=== PATIENT | female | born 1940 | race Caucasian/White ===

== ENCOUNTER 2020-08-14 12:05 | Emergency (ER) | payer BC | END 2020-08-14 12:35 | disposition home or self-care (01) | LOC: JVIRT 12:05 | DX: U07.1 COVID-19 (principal) | CPT/HCPCS: C9803; Q3014-GT; U0003 ==

== ENCOUNTER 2020-08-16 15:02 | Inpatient (IN) | payer BC, OTHER ==
[2020-08-16] MEDS ORDERED: DEXAMETHASONE SOD PHOSPHATE 10 MG/1 ML VIAL IVPUSH ONE (15:30)
[2020-08-16] MEDS ORDERED: DEXAMETHASONE SOD PHOSPHATE 4 MG/1 ML VIAL ONE (16:51)
[2020-08-16 17:28] LABS: BASO % 0.1 % (0-2.0); HEMATOCRIT 41.8 % (32.4-45.2); HEMOGLOBIN 13.8 GM/dL (10.7-15.3); LYMPH % 7.5 % (8-40); MCH 27.9 pg (25.7-33.7); MEAN CELL VOLUME 84.4 fl (80-96); MONO % 8.3 % (3.8-10.2); NEUT % 84.1 % (42.8-82.8); PLATELET COUNT 174 K/MM3 (134-434); RBC 4.95 M/mm3 (3.60-5.2); RDW 15.3 % (11.6-15.6); WHITE BLOOD COUNT 6.1 K/mm3 (4.0-10.0)
[2020-08-16 17:35] LABS: INR 1.07 (0.83-1.09); PROTHROMBIN TIME (PATIENT) 13.1 SEC (9.7-13.0)
[2020-08-16 17:40] LABS: VENOUS O2 SATURATION 78.6 % (70-80); VENOUS PCO2 38.6 mmHg (38-52); VENOUS PH 7.418 (7.310-7.410)
[2020-08-16 17:47] LABS: CHLORIDE 100 mmol/L (98-107); SODIUM 133 mmol/L (136-145)
[2020-08-16 17:49] LABS: ALBUMIN 3.5 g/dl (3.4-5.0); ANION GAP 8 MMOL/L (8-16); CALCIUM 8.5 mg/dL (8.5-10.1); CO2 26 mmol/L (21-32); GLUCOSE,RANDOM 100 mg/dL (74-106)
[2020-08-16 17:52] LABS: BILIRUBIN,DIRECT 0.3 mg/dL (0.0-0.2); CREATININE 1.1 mg/dL (0.55-1.3); SGOT/AST 80 U/L (15-37); SGPT/ALT 81 U/L (13-61)
[2020-08-16 17:54] LABS: BILIRUBIN,TOTAL 0.5 mg/dL (0.2-1); TOT PROT 7.2 g/dl (6.4-8.2)
[2020-08-16 17:55] LABS: ALK PHOS 126 U/L (45-117)
[2020-08-16 17:56] LABS: LDH 306 U/L (84-246)
[2020-08-16] MEDS ORDERED: REMDESIVIR 200 MG in SODIUM CHLORIDE 210 ML IVPB ONE (18:00)
[2020-08-16] MEDS ORDERED: ENOXAPARIN NA (PORCINE) 40 MG/0.4 ML DISP.SYRIN SQ SCH (18:15)
[2020-08-16 18:28] VITALS: BMI 29.0
[2020-08-16] MEDS ORDERED: DEXTROSE 5%-1/3 NS - 500 ML IV SCH (18:30)
[2020-08-16] MEDS: AMOX TR/POT CLAV 875MG/125MG TABLETS (FP) PO SCH ×2 (18:31→18:41)
[2020-08-16] MEDS: LACTOBACILLUS ACIDOPHILUS 1 TABLET PO SCH (18:41)
[2020-08-16] MEDS: LORATADINE 10 MG TABLET PO SCH (18:41)
[2020-08-16] MEDS ORDERED: ALBUTEROL SO4 HFA INHALER IH PRN (19:40)
[2020-08-16 19:59] LABS: EPI CELLS 2 /uL (0-25.1); HYALINE CASTS 0 /uL (0-3.1); PH,URINE 6.5 (5.0-8.0); URINE APPEARANCE CLEAR; URINE BACTERIA 4885 /uL (0-1359); URINE BILIRUBIN NEGATIVE (NEGATIVE); URINE COLOR YELLOW; URINE GLUCOSE (UA) NEGATIVE (NEGATIVE); URINE KETONE NEGATIVE (NEGATIVE); URINE LEUK ESTERASE TRACE (NEGATIVE); URINE NITRITE NEGATIVE (NEGATIVE); URINE PROTEIN NEGATIVE (NEGATIVE); URINE RBC 7 /uL (0-23.9); URINE UROBILINOGEN 0.2 mg/dL (0.2-1.0); URINE WBC 126 /uL (0-25.8)
[2020-08-16] MEDS: guaiFENesin 200 MG/10 ML 10 ML UNIT-DOSE CUPS PO SCH (22:22)
[2020-08-16] MEDS: GABAPENTIN 100 MG CAPSULE PO SCH (22:22)
[2020-08-16] MEDS: DEXTROSE 5%-0.45% SALINE 1,000 ML IV SCH (22:30)
[2020-08-17] MEDS: GABAPENTIN 100 MG CAPSULE PO SCH ×3 (06:04→21:49)
[2020-08-17] MEDS: guaiFENesin 200 MG/10 ML 10 ML UNIT-DOSE CUPS PO SCH ×3 (06:04→21:49)
[2020-08-17 07:27] LABS: BASO % 0.2 % (0-2.0); HEMOGLOBIN 12.3 GM/dL (10.7-15.3); LYMPH % 12.9 % (8-40); MCH 27.5 pg (25.7-33.7); MCHC 32.5 g/dl (32.0-36.0); MEAN CELL VOLUME 84.5 fl (80-96); MEAN PLT VOLUME 9.4 fl (7.5-11.1); MONO % 11.4 % (3.8-10.2); NEUT % 75.5 % (42.8-82.8); PLATELET COUNT 177 K/MM3 (134-434); RBC 4.49 M/mm3 (3.60-5.2); RDW 15.2 % (11.6-15.6); WHITE BLOOD COUNT 3.3 K/mm3 (4.0-10.0)
[2020-08-17] MEDS: AMOX TR/POT CLAV 875MG/125MG TABLETS (FP) PO SCH ×2 (08:35→17:18)
[2020-08-17 09:02] LABS: ALBUMIN 3.2 g/dl (3.4-5.0); ALK PHOS 105 U/L (45-117); ANION GAP 11 MMOL/L (8-16); BILIRUBIN,TOTAL 0.5 mg/dL (0.2-1); BLOOD UREA NITROGEN 17.1 mg/dL (7-18); CALCIUM 8.7 mg/dL (8.5-10.1); CHLORIDE 102 mmol/L (98-107); CO2 24 mmol/L (21-32); CREATININE 0.9 mg/dL (0.55-1.3); GLUCOSE,RANDOM 115 mg/dL (74-106); SGOT/AST 43 U/L (15-37); SGPT/ALT 59 U/L (13-61); SODIUM 137 mmol/L (136-145); TOT PROT 6.8 g/dl (6.4-8.2)
[2020-08-17] MEDS: DEXAMETHASONE SOD PHOSPHATE 10 MG/1 ML VIAL IVPUSH SCH (09:43)
[2020-08-17] MEDS: ATENOLOL 25 MG TABLET (FP) PO SCH ×2 (09:45→21:49)
[2020-08-17] MEDS: LACTOBACILLUS ACIDOPHILUS 1 TABLET PO SCH (09:45)
[2020-08-17] MEDS: LORATADINE 10 MG TABLET PO SCH (09:45)
[2020-08-17] MEDS: ACETAMINOPHEN 325 MG TABLET (FP) PO PRN (10:30)
[2020-08-17] MEDS: REMDESIVIR 100 MG in SODIUM CHLORIDE 230 ML IVPB SCH (17:18)
[2020-08-17] MEDS ORDERED: REMDESIVIR 100 MG in SODIUM CHLORIDE 230 ML IVPB SCH (18:00)
[2020-08-17] MEDS: ENOXAPARIN NA (PORCINE) 40 MG/0.4 ML DISP.SYRIN SQ SCH (18:45)
[2020-08-17] MEDS: FAMOTIDINE 20 MG TABLET PO SCH (18:45)
[2020-08-17] MEDS: DEXTROSE 5%-0.45% SALINE 1,000 ML IV SCH (20:40)
[2020-08-17] MEDS: MELATONIN 5 MG TABLETS PO SCH (21:49)
[2020-08-17] MEDS: ZOLPIDEM TARTRATE 5 MG TABLET PO SCH (21:49)
[2020-08-17] MEDS: TRIAMTERENE AND HCTZ - 37.5 MG/25 MG CAPSULE PO SCH (21:49)
[2020-08-18] MEDS: guaiFENesin 200 MG/10 ML 10 ML UNIT-DOSE CUPS PO SCH ×3 (06:10→21:33)
[2020-08-18] MEDS: GABAPENTIN 100 MG CAPSULE PO SCH ×3 (06:11→21:33)
[2020-08-18 08:00] LABS: CALCIUM 8.5 mg/dL (8.5-10.1)
[2020-08-18 08:04] LABS: CREATININE 0.9 mg/dL (0.55-1.3)
[2020-08-18 08:05] LABS: BILIRUBIN,TOTAL 0.4 mg/dL (0.2-1)
[2020-08-18 08:06] LABS: TOT PROT 6.5 g/dl (6.4-8.2)
[2020-08-18] MEDS ORDERED: PT OWN MED DRAWER 7, Y5N ONE (09:26)
[2020-08-18] MEDS: AMOX TR/POT CLAV 875MG/125MG TABLETS (FP) PO SCH (09:31)
[2020-08-18] MEDS: DEXAMETHASONE SOD PHOSPHATE 10 MG/1 ML VIAL IVPUSH SCH (09:31)
[2020-08-18] MEDS: LORATADINE 10 MG TABLET PO SCH (09:31)
[2020-08-18] MEDS: TRIAMTERENE AND HCTZ - 37.5 MG/25 MG CAPSULE PO SCH (09:31)
[2020-08-18] MEDS: LACTOBACILLUS ACIDOPHILUS 1 TABLET PO SCH (09:31)
[2020-08-18] MEDS: ATENOLOL 25 MG TABLET (FP) PO SCH ×2 (09:32→21:34)
[2020-08-18] MEDS: ENOXAPARIN NA (PORCINE) 40 MG/0.4 ML DISP.SYRIN SQ SCH (09:32)
[2020-08-18] MEDS: FAMOTIDINE 20 MG TABLET PO SCH (09:32)
[2020-08-18] MEDS ORDERED: cefTRIAXone SODIUM 1 GM VIAL ONE (14:34)
[2020-08-18] MEDS ORDERED: DEXTROSE 5%-WATER - 50 ML IVPB ONE (14:35)
[2020-08-18] MEDS: CEFTRIAXONE 1 GM in DEXTROSE 5%-WATER - 50 ML IVPB SCH (14:42)
[2020-08-18] MEDS: POTASSIUM CHLORIDE TABS 20 MEQ TABLET.ER (FP) PO SCH (18:44)
[2020-08-18] MEDS: REMDESIVIR 100 MG in SODIUM CHLORIDE 230 ML IVPB SCH (18:44)
[2020-08-18] MEDS: MELATONIN 5 MG TABLETS PO SCH (21:34)
[2020-08-18] MEDS: ZOLPIDEM TARTRATE 5 MG TABLET PO SCH (21:34)
[2020-08-19] MEDS: guaiFENesin 200 MG/10 ML 10 ML UNIT-DOSE CUPS PO SCH ×3 (05:25→21:48)
[2020-08-19] MEDS: GABAPENTIN 100 MG CAPSULE PO SCH ×3 (05:25→21:48)
[2020-08-19 07:23] LABS: BASO % 0.2 % (0-2.0); HEMATOCRIT 38.1 % (32.4-45.2); HEMOGLOBIN 12.5 GM/dL (10.7-15.3); LYMPH % 14.3 % (8-40); MCH 27.6 pg (25.7-33.7); MCHC 32.8 g/dl (32.0-36.0); MEAN PLT VOLUME 8.9 fl (7.5-11.1); MONO % 15.6 % (3.8-10.2); NEUT % 69.9 % (42.8-82.8); PLATELET COUNT 240 K/MM3 (134-434); RBC 4.54 M/mm3 (3.60-5.2); WHITE BLOOD COUNT 4.9 K/mm3 (4.0-10.0)
[2020-08-19 07:38] LABS: ALBUMIN 2.9 g/dl (3.4-5.0); BLOOD UREA NITROGEN 21.7 mg/dL (7-18); CALCIUM 8.4 mg/dL (8.5-10.1)
[2020-08-19 07:39] LABS: MAGNESIUM 1.8 mg/dL (1.8-2.4)
[2020-08-19 07:42] LABS: BILIRUBIN,TOTAL 0.5 mg/dL (0.2-1); CREATININE 0.9 mg/dL (0.55-1.3); TOT PROT 6.3 g/dl (6.4-8.2)
[2020-08-19] MEDS ORDERED: cefTRIAXone SODIUM 1 GM VIAL ONE (09:04)
[2020-08-19] MEDS ORDERED: DEXTROSE 5%-WATER - 50 ML IVPB ONE (09:04)
[2020-08-19] MEDS ORDERED: PT OWN MED DRAWER 7, Y5N ONE (09:04)
[2020-08-19] MEDS: ENOXAPARIN NA (PORCINE) 40 MG/0.4 ML DISP.SYRIN SQ SCH (09:08)
[2020-08-19] MEDS: ATENOLOL 25 MG TABLET (FP) PO SCH ×2 (09:09→21:48)
[2020-08-19] MEDS: DEXAMETHASONE SOD PHOSPHATE 10 MG/1 ML VIAL IVPUSH SCH (09:09)
[2020-08-19] MEDS: POTASSIUM CHLORIDE TABS 20 MEQ TABLET.ER (FP) PO SCH (09:09)
[2020-08-19] MEDS: CEFTRIAXONE 1 GM in DEXTROSE 5%-WATER - 50 ML IVPB SCH (09:09)
[2020-08-19] MEDS: TRIAMTERENE AND HCTZ - 37.5 MG/25 MG CAPSULE PO SCH (09:09)
[2020-08-19] MEDS: LORATADINE 10 MG TABLET PO SCH (09:09)
[2020-08-19] MEDS: LACTOBACILLUS ACIDOPHILUS 1 TABLET PO SCH (09:09)
[2020-08-19] MEDS: FAMOTIDINE 20 MG TABLET PO SCH (09:09)
[2020-08-19] MEDS: REMDESIVIR 100 MG in SODIUM CHLORIDE 230 ML IVPB SCH (17:11)
[2020-08-19] MEDS: MULTIVITAMINS THER W-MINERALS COMBO TABLET (FP) PO SCH (18:28)
[2020-08-19] MEDS: DEXTROSE 5%-0.45% SALINE 1,000 ML IV SCH (21:48)
[2020-08-19] MEDS: MELATONIN 5 MG TABLETS PO SCH (21:48)
[2020-08-19] MEDS: ZOLPIDEM TARTRATE 5 MG TABLET PO SCH (21:48)
[2020-08-20] MEDS: DEXTROSE 5%-0.45% SALINE 1,000 ML IV SCH ×2 (00:41→22:12)
[2020-08-20] MEDS: GABAPENTIN 100 MG CAPSULE PO SCH ×3 (06:06→22:14)
[2020-08-20] MEDS: guaiFENesin 200 MG/10 ML 10 ML UNIT-DOSE CUPS PO SCH ×3 (06:06→22:14)
[2020-08-20 07:37] LABS: BASO % 0.2 % (0-2.0); HEMOGLOBIN 12.6 GM/dL (10.7-15.3); LYMPH % 16.7 % (8-40); MCH 27.4 pg (25.7-33.7); MCHC 33.1 g/dl (32.0-36.0); MEAN CELL VOLUME 82.7 fl (80-96); MEAN PLT VOLUME 8.6 fl (7.5-11.1); MONO % 11.8 % (3.8-10.2); NEUT % 71.3 % (42.8-82.8); PLATELET COUNT 275 K/MM3 (134-434); RBC 4.59 M/mm3 (3.60-5.2); RDW 14.8 % (11.6-15.6); WHITE BLOOD COUNT 5.4 K/mm3 (4.0-10.0)
[2020-08-20 07:51] LABS: BLOOD UREA NITROGEN 25.7 mg/dL (7-18)
[2020-08-20 07:55] LABS: CREATININE 0.9 mg/dL (0.55-1.3)
[2020-08-20 07:56] LABS: BILIRUBIN,TOTAL 0.4 mg/dL (0.2-1); TOT PROT 6.4 g/dl (6.4-8.2)
[2020-08-20] MEDS ORDERED: PT OWN MED DRAWER 7, Y5N ONE (09:20)
[2020-08-20] MEDS ORDERED: DEXTROSE 5%-WATER - 50 ML IVPB ONE (09:21)
[2020-08-20] MEDS ORDERED: cefTRIAXone SODIUM 1 GM VIAL ONE (09:21)
[2020-08-20] MEDS: LACTOBACILLUS ACIDOPHILUS 1 TABLET PO SCH (09:38)
[2020-08-20] MEDS: POTASSIUM CHLORIDE TABS 20 MEQ TABLET.ER (FP) PO SCH (09:38)
[2020-08-20] MEDS: DEXAMETHASONE SOD PHOSPHATE 10 MG/1 ML VIAL IVPUSH SCH (09:38)
[2020-08-20] MEDS: LORATADINE 10 MG TABLET PO SCH (09:38)
[2020-08-20] MEDS: MULTIVITAMINS THER W-MINERALS COMBO TABLET (FP) PO SCH (09:38)
[2020-08-20] MEDS: ATENOLOL 25 MG TABLET (FP) PO SCH ×2 (09:38→22:14)
[2020-08-20] MEDS: TRIAMTERENE AND HCTZ - 37.5 MG/25 MG CAPSULE PO SCH (09:38)
[2020-08-20] MEDS: CEFTRIAXONE 1 GM in DEXTROSE 5%-WATER - 50 ML IVPB SCH (09:40)
[2020-08-20] MEDS: FAMOTIDINE 20 MG TABLET PO SCH (09:41)
[2020-08-20] MEDS: ENOXAPARIN NA (PORCINE) 40 MG/0.4 ML DISP.SYRIN SQ SCH (09:41)
[2020-08-20 12:04] LABS: MAGNESIUM 1.7 mg/dL (1.8-2.4)
[2020-08-20] MEDS: REMDESIVIR 100 MG in SODIUM CHLORIDE 230 ML IVPB SCH (17:18)
[2020-08-20] MEDS: MAGNESIUM OXIDE 400 MG TABLET (FP) PO SCH (22:13)
[2020-08-20] MEDS: ZOLPIDEM TARTRATE 5 MG TABLET PO SCH (22:13)
[2020-08-20] MEDS: MELATONIN 5 MG TABLETS PO SCH (22:13)
[2020-08-21] MEDS: guaiFENesin 200 MG/10 ML 10 ML UNIT-DOSE CUPS PO SCH ×3 (05:51→21:33)
[2020-08-21] MEDS: GABAPENTIN 100 MG CAPSULE PO SCH ×3 (05:51→21:33)
[2020-08-21 07:00] LABS: BASO % 0.4 % (0-2.0); HEMATOCRIT 38.9 % (32.4-45.2); HEMOGLOBIN 12.7 GM/dL (10.7-15.3); LYMPH % 14.5 % (8-40); MCH 27.4 pg (25.7-33.7); MCHC 32.7 g/dl (32.0-36.0); MEAN CELL VOLUME 83.7 fl (80-96); MEAN PLT VOLUME 8.5 fl (7.5-11.1); MONO % 11.3 % (3.8-10.2); NEUT % 73.8 % (42.8-82.8); PLATELET COUNT 302 K/MM3 (134-434); RBC 4.64 M/mm3 (3.60-5.2); RDW 15.1 % (11.6-15.6); WHITE BLOOD COUNT 6.8 K/mm3 (4.0-10.0)
[2020-08-21 07:28] LABS: ALBUMIN 2.9 g/dl (3.4-5.0); BLOOD UREA NITROGEN 31.3 mg/dL (7-18); MAGNESIUM 1.9 mg/dL (1.8-2.4)
[2020-08-21 07:31] LABS: CREATININE 0.9 mg/dL (0.55-1.3)
[2020-08-21 07:33] LABS: BILIRUBIN,TOTAL 0.4 mg/dL (0.2-1); TOT PROT 6.2 g/dl (6.4-8.2)
[2020-08-21] MEDS: MAGNESIUM OXIDE 400 MG TABLET (FP) PO SCH ×2 (08:53→21:33)
[2020-08-21] MEDS: LACTOBACILLUS ACIDOPHILUS 1 TABLET PO SCH (10:18)
[2020-08-21] MEDS: CEFUROXIME AXETIL 500 MG TABLET PO SCH ×2 (10:18→21:33)
[2020-08-21] MEDS: FAMOTIDINE 20 MG TABLET PO SCH (10:18)
[2020-08-21] MEDS: LORATADINE 10 MG TABLET PO SCH (10:18)
[2020-08-21] MEDS: MULTIVITAMINS THER W-MINERALS COMBO TABLET (FP) PO SCH (10:19)
[2020-08-21] MEDS: DEXAMETHASONE SOD PHOSPHATE 10 MG/1 ML VIAL IVPUSH SCH (10:19)
[2020-08-21] MEDS: POTASSIUM CHLORIDE TABS 20 MEQ TABLET.ER (FP) PO SCH (10:19)
[2020-08-21] MEDS: ATENOLOL 25 MG TABLET (FP) PO SCH ×2 (10:19→21:33)
[2020-08-21] MEDS: TRIAMTERENE AND HCTZ - 37.5 MG/25 MG CAPSULE PO SCH (10:21)
[2020-08-21] MEDS: ENOXAPARIN NA (PORCINE) 40 MG/0.4 ML DISP.SYRIN SQ SCH (10:21)
[2020-08-21] MEDS: DEXTROSE 5%-0.45% SALINE 1,000 ML IV SCH (21:32)
[2020-08-21] MEDS: MELATONIN 5 MG TABLETS PO SCH (21:32)
[2020-08-21] MEDS: ZOLPIDEM TARTRATE 5 MG TABLET PO SCH (21:33)
[2020-08-22] MEDS: guaiFENesin 200 MG/10 ML 10 ML UNIT-DOSE CUPS PO SCH ×3 (06:21→21:14)
[2020-08-22] MEDS: GABAPENTIN 100 MG CAPSULE PO SCH ×3 (06:21→21:11)
[2020-08-22 07:34] LABS: BLOOD UREA NITROGEN 29.3 mg/dL (7-18); CALCIUM 8.9 mg/dL (8.5-10.1)
[2020-08-22 07:35] LABS: ALBUMIN 2.9 g/dl (3.4-5.0); CREATININE 0.8 mg/dL (0.55-1.3)
[2020-08-22 07:37] LABS: BILIRUBIN,TOTAL 0.9 mg/dL (0.2-1); TOT PROT 6.3 g/dl (6.4-8.2)
[2020-08-22] MEDS: ENOXAPARIN NA (PORCINE) 40 MG/0.4 ML DISP.SYRIN SQ SCH (09:41)
[2020-08-22] MEDS: ATENOLOL 25 MG TABLET (FP) PO SCH ×2 (09:42→21:14)
[2020-08-22] MEDS: MAGNESIUM OXIDE 400 MG TABLET (FP) PO SCH ×2 (09:42→21:13)
[2020-08-22] MEDS: FAMOTIDINE 20 MG TABLET PO SCH (09:42)
[2020-08-22] MEDS: MULTIVITAMINS THER W-MINERALS COMBO TABLET (FP) PO SCH (09:42)
[2020-08-22] MEDS: CEFUROXIME AXETIL 500 MG TABLET PO SCH ×2 (09:42→21:14)
[2020-08-22] MEDS: POTASSIUM CHLORIDE TABS 20 MEQ TABLET.ER (FP) PO SCH (09:42)
[2020-08-22] MEDS: DEXAMETHASONE SOD PHOSPHATE 10 MG/1 ML VIAL IVPUSH SCH (09:42)
[2020-08-22] MEDS: LORATADINE 10 MG TABLET PO SCH (09:42)
[2020-08-22] MEDS: LACTOBACILLUS ACIDOPHILUS 1 TABLET PO SCH (09:42)
[2020-08-22] MEDS: TRIAMTERENE AND HCTZ - 37.5 MG/25 MG CAPSULE PO SCH (13:36)
[2020-08-22] MEDS ORDERED: PT OWN MED DRAWER 7, Y5N ONE (20:57)
[2020-08-22] MEDS: DEXTROSE 5%-0.45% SALINE 1,000 ML IV SCH (21:06)
[2020-08-22] MEDS: ZOLPIDEM TARTRATE 5 MG TABLET PO SCH (21:11)
[2020-08-22] MEDS ORDERED: SODIUM CHLORIDE NASAL SPRAY 44 ML BOTTLE NS PRN (21:13)
[2020-08-22] MEDS: MELATONIN 5 MG TABLETS PO SCH (21:14)
[2020-08-23] MEDS ORDERED: PT OWN MED DRAWER 7, Y5N ONE ×2 (04:09→10:17)
[2020-08-23] MEDS: guaiFENesin 200 MG/10 ML 10 ML UNIT-DOSE CUPS PO SCH ×3 (06:07→21:26)
[2020-08-23] MEDS: GABAPENTIN 100 MG CAPSULE PO SCH ×3 (06:07→21:26)
[2020-08-23 07:20] LABS: BASO % 0.2 % (0-2.0); EOS % 0.2 % (0-4.5); HEMATOCRIT 40.1 % (32.4-45.2); HEMOGLOBIN 13.5 GM/dL (10.7-15.3); LYMPH % 8.3 % (8-40); MCH 28.2 pg (25.7-33.7); MCHC 33.6 g/dl (32.0-36.0); MEAN CELL VOLUME 84.1 fl (80-96); MEAN PLT VOLUME 8.3 fl (7.5-11.1); MONO % 8.2 % (3.8-10.2); NEUT % 83.1 % (42.8-82.8); PLATELET COUNT 395 K/MM3 (134-434); RBC 4.77 M/mm3 (3.60-5.2); RDW 15.1 % (11.6-15.6); WHITE BLOOD COUNT 12.5 K/mm3 (4.0-10.0)
[2020-08-23 07:39] LABS: CALCIUM 9.3 mg/dL (8.5-10.1)
[2020-08-23 07:40] LABS: BLOOD UREA NITROGEN 32.7 mg/dL (7-18)
[2020-08-23 07:43] LABS: CREATININE 0.9 mg/dL (0.55-1.3)
[2020-08-23] MEDS: MAGNESIUM OXIDE 400 MG TABLET (FP) PO SCH ×2 (08:28→21:26)
[2020-08-23 09:37] LABS: ANISOCYTOSIS 0; MACROCYTOSIS 0; PLATELET ESTIMATE NORMAL
[2020-08-23] MEDS: ENOXAPARIN NA (PORCINE) 40 MG/0.4 ML DISP.SYRIN SQ SCH (10:20)
[2020-08-23] MEDS: MULTIVITAMINS THER W-MINERALS COMBO TABLET (FP) PO SCH (10:21)
[2020-08-23] MEDS: ATENOLOL 25 MG TABLET (FP) PO SCH ×2 (10:21→21:28)
[2020-08-23] MEDS: CEFUROXIME AXETIL 500 MG TABLET PO SCH ×2 (10:21→21:26)
[2020-08-23] MEDS: DEXAMETHASONE SOD PHOSPHATE 10 MG/1 ML VIAL IVPUSH SCH (10:21)
[2020-08-23] MEDS: FAMOTIDINE 20 MG TABLET PO SCH (10:21)
[2020-08-23] MEDS: LACTOBACILLUS ACIDOPHILUS 1 TABLET PO SCH (10:21)
[2020-08-23] MEDS: TRIAMTERENE AND HCTZ - 37.5 MG/25 MG CAPSULE PO SCH (10:21)
[2020-08-23] MEDS: LORATADINE 10 MG TABLET PO SCH (10:21)
[2020-08-23] MEDS: POTASSIUM CHLORIDE TABS 20 MEQ TABLET.ER (FP) PO SCH (10:21)
[2020-08-23] MEDS: ZOLPIDEM TARTRATE 5 MG TABLET PO SCH (21:26)
[2020-08-23] MEDS: MELATONIN 5 MG TABLETS PO SCH (21:26)
[2020-08-24] MEDS: guaiFENesin 200 MG/10 ML 10 ML UNIT-DOSE CUPS PO SCH ×2 (05:41→13:40)
[2020-08-24] MEDS: GABAPENTIN 100 MG CAPSULE PO SCH ×2 (05:41→13:40)
[2020-08-24] MEDS ORDERED: PT OWN MED DRAWER 7, Y5N ONE ×2 (08:30→08:51)
[2020-08-24] MEDS: DEXAMETHASONE SOD PHOSPHATE 10 MG/1 ML VIAL IVPUSH SCH (09:06)
[2020-08-24] MEDS: TRIAMTERENE AND HCTZ - 37.5 MG/25 MG CAPSULE PO SCH (09:07)
[2020-08-24] MEDS: LACTOBACILLUS ACIDOPHILUS 1 TABLET PO SCH (09:07)
[2020-08-24] MEDS: LORATADINE 10 MG TABLET PO SCH (09:07)
[2020-08-24] MEDS: MAGNESIUM OXIDE 400 MG TABLET (FP) PO SCH (09:07)
[2020-08-24] MEDS: MULTIVITAMINS THER W-MINERALS COMBO TABLET (FP) PO SCH (09:07)
[2020-08-24] MEDS: FAMOTIDINE 20 MG TABLET PO SCH (09:07)
[2020-08-24] MEDS: POTASSIUM CHLORIDE TABS 20 MEQ TABLET.ER (FP) PO SCH (09:07)
[2020-08-24] MEDS: ATENOLOL 25 MG TABLET (FP) PO SCH (09:07)
[2020-08-24] MEDS: CEFUROXIME AXETIL 500 MG TABLET PO SCH (09:08)
[2020-08-24] MEDS: ENOXAPARIN NA (PORCINE) 40 MG/0.4 ML DISP.SYRIN SQ SCH (09:08)
[2020-08-24 10:31] VITALS: TEMP 97.8
[2020-08-24 14:29] VITALS: BP 133/59; PULSE 69
[2020-08-24] MEDS: ACETAMINOPHEN 325 MG TABLET (FP) PO PRN (15:18)
== END 2020-08-24 18:05 | disposition home or self-care (01) | DRG 177 ==
LOC: JER 15:02 → JERBED 15:56 → J4S 17:40
PROVIDERS: ADMIT Internal Medicine; ATTEND Internal Medicine
PROC: XW13325 Transfusion of Convalescent Plasma (Nonautologous) into Peripheral Vein, Percutaneous Approach, New Technology Group 5 (ICD-10-PCS; principal; 2020-08-16)
PROC: XW033E5 Introduction of Remdesivir Anti-infective into Peripheral Vein, Percutaneous Approach, New Technology Group 5 (ICD-10-PCS; 2020-08-16)
PROC: 8E0ZXY6 Isolation (ICD-10-PCS; 2020-08-16)
DX: U07.1 COVID-19 (principal); J12.89 Other viral pneumonia; I47.1 Supraventricular tachycardia; N39.0 Urinary tract infection, site not specified; I47.2 Ventricular tachycardia; R06.02 Shortness of breath; I10 Essential (primary) hypertension; R09.02 Hypoxemia; G62.9 Polyneuropathy, unspecified; M19.90 Unspecified osteoarthritis, unspecified site
CPT/HCPCS: 36415; 36430; 71045-TC-FY; 80048; 80053; 81003; 82248; 82550; 82728; 82803; 82962; 83605; 83615; 83735; 84484; 85025; 85379; 85610; 85730; 86140; 86850; 86870; 86900; 86901; 86902; 87040; 87086; 87186; 87804; 87899; 93005; 93010; 94010; 94761; 99285-25; C9803; J1100; P9017; U0003

== ENCOUNTER 2024-07-26 05:24 | Day surgery (SDC) | payer BC ==
[2024-07-21 13:58] VITALS: BMI 28.5
[2024-07-26 08:29] VITALS: TEMP 98.3
[2024-07-26 09:04] VITALS: BP 124/68; PULSE 64; RESP 15
== END 2024-07-26 09:24 | disposition home or self-care (01) ==
LOC: JASU-ENDO 05:24
PROVIDERS: ATTEND Internal Medicine Gastroenterology
PROC: 0DJD8ZZ Inspection of Lower Intestinal Tract, Via Natural or Artificial Opening Endoscopic (ICD-10-PCS; principal; 2024-07-26 08:00)
DX: Z12.11 Encounter for screening for malignant neoplasm of colon (principal); K57.30 Diverticulosis of large intestine without perforation or abscess without bleeding; K64.8 Other hemorrhoids; K64.4 Residual hemorrhoidal skin tags